=== PATIENT | male | born 1955 | race Caucasian/White ===

== ENCOUNTER 2016-12-27 11:01 | Outpatient (CLI) | payer BC ==
[2016-12-27 12:10] LABS: Hematocrit 37.2 % (42.0-52.0); Red Blood Cell (RBC) Count 4.09 mill/uL (4.70-6.10); White Blood Cell (WBC) Count 10.8 thou/uL (4.8-10.8)
[2016-12-27 12:28] LABS: Anion Gap 15 mmol/L (10-20); BUN (Urea Nitrogen) 25 mg/dL (8.4-25.7); Calc. Creatinine Clearance 0 mL/min (70-130); Calcium 9.9 mg/dL (7.8-10.44); Carbon Dioxide 26 mmol/L (23-31); Chloride 105 mmol/L (98-107); Estimated GFR-MDRD 42
--- NOTE | 2016-12-31 13:21 | EKG ---
Test Reason : Blood Pressure : / mmHG Vent. Rate : 089 BPM Atrial Rate : 089 BPM P-R Int : 154 ms QRS Dur : 106 ms QT Int : 390 ms P-R-T Axes : 061 -58 040 degrees QTc Int : 474 ms Normal sinus rhythm RSR' or QR pattern in V1 suggests right ventricular conduction delay Inferior infarct , age undetermined T wave abnormality, consider anterior ischemia Possible Anterior infarct , age undetermined Abnormal ECG Confirmed by MORENA LAWSON ([id number]) on 12/31/2016 1:21:19 PM Referred By: FRANKY Confirmed By:MORENA LAWSON
== END 2016-12-27 11:02 | disposition home or self-care (01) ==
LOC: LABBT 11:01
PROVIDERS: ATTEND Neurological Surgery
DX: Z01.818 Encounter for other preprocedural examination (principal); M54.12 Radiculopathy, cervical region
CPT/HCPCS: 80048; 85027; 93005; 93010

== ENCOUNTER 2016-12-31 06:29 | Day surgery (SDC) | payer BC ==
[2016-12-27 11:17] VITALS: BMI 34.7
[2016-12-31] MEDS ORDERED: CEFAZOLIN/Water 2 GM/20 ML SYRINGE ONE (06:45)
[2016-12-31] MEDS ORDERED: Sodium Chloride 0.9% 10 ML ONE (06:49)
[2016-12-31] MEDS ORDERED: Midazolam HCl 2 mg/2 ml Vial ONE (07:29)
[2016-12-31] MEDS ORDERED: Fentanyl 250 MCG/5 ML VIAL ONE (07:46)
[2016-12-31] MEDS ORDERED: Ondansetron HCl/PF 4 MG/2 ML Vial ONE (08:16)
[2016-12-31] MEDS ORDERED: PHENYLEPHRINE-NS 100 MCG/ML 10 ML SYRINGE ONE (08:16)
[2016-12-31] MEDS ORDERED: Glycopyrrolate 0.2 MG/ML 5 ML SYRINGE ONE (08:16)
[2016-12-31] MEDS ORDERED: Propofol 200 MG/20 ML VIAL ONE (08:16)
[2016-12-31] MEDS ORDERED: Lidocaine 1% PF 5 ML VIAL ONE (08:16)
--- NOTE | 2016-12-31 09:48 | OP ---
DATE OF PROCEDURE: 12/31/2016 SURGEON: Binh Garcia LUMBER PLANER: Gal Brush PA-C PROCEDURES: Anterior cervical discectomy at C5-6 and C6-7, interbody arthrodesis, intravertebral bi omechanical device, local morselized autograft, demineralized bone matrix, anterior titanium instrum entation C5 through C7. PROCEDURE IN DETAIL: The patient was brought into the operating room and intubated. He was positio danisha supine with the head in modest extension on a gel-filled donut. Incision was made in the right precervical area and dissecting medial to the sternocleidomastoid muscle. We identified the anterio r cervical spine and our level was confirmed by x-ray. We debrided anterior osteophytes, placed dis traction across the disc spaces, and using the operating microscope and microdissection techniques, completely decompressed the neural elements from foramen to foramen. Next, the bony endplates were decorticated for the purpose of arthrodesis and appropriately sized intravertebral biomechanical PEE K devices were brought into the field, filled with demineralized bone matrix and local morselized au tograft, and tapped into place securely at C5-6 and at C6-7. Next, an anterior plate was brought in the field and secured to C5, C6 and C7 using two 14 mm screws at each level. The wound was then ex tensively irrigated, immaculate hemostasis was secured, and the wound was closed in anatomic layers.
[2016-12-31] MEDS ORDERED: Fentanyl 100 MCG/2 ML VIAL ONE ×2 (09:54→10:18)
[2016-12-31] MEDS ORDERED: Ketorolac Tromethamine 30 MG/ML VIAL ONE (10:27)
[2016-12-31] MEDS ORDERED: HYDROcodone/Acetaminophen 10/325 mg Tablet ONE (13:26)
== END 2016-12-31 14:00 | disposition home or self-care (01) ==
LOC: SDC 06:29
PROVIDERS: ATTEND Neurological Surgery
PROC: 0RT30ZZ Resection of Cervical Vertebral Disc, Open Approach (ICD-10-PCS; principal; 2016-12-31)
PROC: 0RG2070 Fusion of 2 or more Cervical Vertebral Joints with Autologous Tissue Substitute, Anterior Approach, Anterior Column, Open Approach (ICD-10-PCS; principal; 2016-12-31)
PROC: 0RG20A0 Fusion of 2 or more Cervical Vertebral Joints with Interbody Fusion Device, Anterior Approach, Anterior Column, Open Approach (ICD-10-PCS; principal; 2016-12-31)
DX: M50.123 Cervical disc disorder at C6-C7 level with radiculopathy (principal); M25.78 Osteophyte, vertebrae; E78.5 Hyperlipidemia, unspecified; E11.40 Type 2 diabetes mellitus with diabetic neuropathy, unspecified; E11.22 Type 2 diabetes mellitus with diabetic chronic kidney disease; I12.9 Hypertensive chronic kidney disease with stage 1 through stage 4 chronic kidney disease, or unspecified chronic kidney disease; N18.2 Chronic kidney disease, stage 2 (mild); F32.9 Major depressive disorder, single episode, unspecified; F41.9 Anxiety disorder, unspecified; Z79.84 Long term (current) use of oral hypoglycemic drugs; Z79.82 Long term (current) use of aspirin; Z79.899 Other long term (current) drug therapy; Z88.1 Allergy status to other antibiotic agents; Z98.890 Other specified postprocedural states; Z87.891 Personal history of nicotine dependence
CPT/HCPCS: 76001; 96374; A4216; C1713; J1885; J2001; J2250; J2270; J2405; J2704; J3010; J3490

== ENCOUNTER 2018-04-24 08:24 | Outpatient (CLI) | payer BC ==
[~2018-04-24 08:24] MED LIST: ISOVUE-370 76%-LOCM 1 ML ONE
--- NOTE | 2018-04-24 11:18 | CT ---
CT LEFT WRIST WITH CONTRAST: HISTORY: Squamous cell carcinoma. Evaluate for deep extension. FINDINGS: At the area of interest along the lateral margin of the distal forearm, there is minimal overlying sk in thickening likely postsurgical in nature. NO underlying mass. No adjacent adenopathy. No eviden ce of deep extension of malignancy. BONES: No fracture. No malalignment. Moderate degenerative disease of the ulnar trochlear joint. MUSCLES: Muscle bulk is normal. NEUOROVASCULAR BUNDLES: Intact. IMPRESSION: No evidence for deep extension or metastatic disease of squamous cell carcinoma. POS: TPC
== END 2018-04-24 08:25 | disposition home or self-care (01) ==
LOC: BICCT 08:24
PROVIDERS: ATTEND Family Medicine
DX: C44.92 Squamous cell carcinoma of skin, unspecified (principal)
CPT/HCPCS: Q9966

== ENCOUNTER 2018-10-05 15:09 | Inpatient (IN) | payer BC ==
[2018-10-05 15:32] LABS: #Basophils 0.1 thou/uL (0.0-0.2); #Eosinphils 0.3 thou/uL (0.0-0.7); #Lymphocytes 3.7 thou/uL (1.20-3.40); #Monocytes 1.3 thou/uL (0.11-0.59); #Neutrophils 6.9 thou/uL (1.40-6.50); %Basophils 0.6 % (0.0-1.0); %Eosinophils 2.2 % (0.0-10.0); %Lymphocytes 30.3 % (21.0-51.0); %Monocytes 10.3 % (0.0-10.0); %Neutrophils 56.5 % (42.0-75.0); Hemoglobin 13.6 g/dL (14.0-18.0); Mean Corpuscular HGB CONC 33.1 g/dL (32.0-36.0); Mean Corpuscular Hemoglobin 29.8 pg (27.0-31.0); Mean Corpuscular Volume 90.1 fL (78.0-98.0); Mean Platelet Volume 7.4 fL (7.4-10.4); Platelet Count 375 thou/uL (130-400); RBC Distribution Width 13.6 % (11.5-14.5); Red Blood Cell (RBC) Count 4.57 mill/uL (4.70-6.10); White Blood Cell (WBC) Count 12.2 thou/uL (4.8-10.8)
--- NOTE | 2018-10-05 15:51 | RAD ---
Chest AP view INDICATION: Weakness and low blood pressure COMPARISON: September 30, 2014 FINDINGS: Lungs:There is increased airspace opacity within the retrocardiac left lower lobe as well as portions of the right lower lobe may reflect sequela of atelectasis and pneumonia isn't excluded. Cardiac silhouette pulmonary vasculature:The cardiomediastinal silhouette appears within normal limit s. Pleural spaces:No pleural effusion or pneumothorax is demonstrated. Upper abdomen:No abnormality seen. Osseous structures: No acute osseous abnormality. Additional findings:An ACDF is seen involving the cervical spine. IMPRESSION: Bibasilar airspace opacities are new from the prior exam. Bilateral pneumonia are not exc luded. Recommend two-view chest radiograph for further evaluation
[2018-10-05 15:55] LABS: ALT (SGPT) 29 U/L (8-55); AST (SGOT) 29 U/L (5-34); Albumin 4.9 g/dL (3.4-4.8); Alkaline Phosphatase 128 U/L (40-150); Anion Gap 17 mmol/L (10-20); BUN (Urea Nitrogen) 36 mg/dL (8.4-25.7); Bilirubin, Total 0.5 mg/dL (0.2-1.2); CK (CPK) 320 U/L (30-200); Calc. Creatinine Clearance 0 mL/min (70-130); Calcium 10.4 mg/dL (7.8-10.44); Carbon Dioxide 24 mmol/L (23-31); Chloride 99 mmol/L (98-107); Estimated GFR-MDRD 26; Globulin 3.1 g/dL (2.4-3.5); Glucose 120 mg/dL (80-115); Potassium 3.4 mmol/L (3.5-5.1); Sodium 137 mmol/L (136-145)
[2018-10-05] MEDS ORDERED: Mag-Al 1200 mg/1200 mg/30 ML UDCUP ONE (16:06)
[2018-10-05] MEDS ORDERED: Lidocaine Viscous Sol 2% 15 ml UD Cup ONE (16:06)
[2018-10-05] MEDS ORDERED: Acetaminophen 650 MG Suppository PR PRN (17:32)
[2018-10-05] MEDS ORDERED: Acetaminophen 325 MG TAB PO PRN (17:32)
[2018-10-05] MEDS ORDERED: HumaLOG 300 UNITS/3 ML VIAL SC PRN (17:35)
[2018-10-05] MEDS ORDERED: Dextrose 50% Abboject 50 ML SYRINGE SLOW IVP PRN (17:35)
[2018-10-05] MEDS ORDERED: Dextrose 5% in Water 1,000 ML IV PRN (17:35)
[2018-10-05] MEDS ORDERED: Potassium Chloride 20 MEQ TAB PO SCH (18:00)
--- NOTE | 2018-10-05 18:27 | HP ---
PRIMARY CARE PROVIDER: Murtaza Acuña DO CHIEF COMPLAINT: Low blood sugars. HISTORY OF PRESENT ILLNESS: Mr. Louis is a pleasant 63-year-old gentleman, who was seen at [facility] on October 05, 2018. He reports that he was hospitalized at this facility in 2013 and 2015 for heat exertion. He reports that he had elevated blood sugars over the last 3 weeks. He was started on glimepiride. He reports vomiting one week ago. He denies any recent travel. He reports working outdoors yesterday and today, on hot days. He reports feeling weak and dizzy. He checked his blood sugar and found that his blood sugar was low. His blood pressure was also low. He therefore presented to the emergency room. He also has an ulcer over the dorsum of his left foot for which he was treated with amoxicillin for 1 week, completing the course three days ago. REVIEW OF SYSTEMS: All other systems were reviewed and found to be negative. PAST MEDICAL HISTORY: Diabetes mellitus type 2, dyslipidemia, and hypertension. PAST SURGICAL HISTORY: Neck surgery. SOCIAL HISTORY: The patient denies tobacco use, alcohol use, or recreational drug use. ALLERGIES: AMLODIPINE AND AZITHROMYCIN. FAMILY HISTORY: No family history of coronary artery disease. CURRENT MEDICATIONS: 1. Aspirin 81 mg daily. 2. Atorvastatin 40 mg daily. 3. Amitriptyline 25 mg daily. 4. Lyrica 100 mg 2 times a day. 5. Lisinopril 10 mg daily. 6. Glimepiride 2 mg daily. 7. Trulicity 0.5 mL subcutaneously every week. PHYSICAL EXAMINATION: GENERAL: On examination, Mr. Louis is awake and alert, not in acute distress. VITAL SIGNS: Blood pressure is 91/58, pulse 74, respiratory rate 18, and oxygen saturation 100% on room air. He is afebrile. EYES: No scleral icterus. No conjunctival pallor. ENT: Dry mucosal membranes. No oropharyngeal erythema or exudates. NECK: Supple, nontender. Trachea is midline. RESPIRATORY: Accessory muscles of breathing are not active. Chest wall movements are symmetric bilaterally. Lungs are clear to auscultation without wheeze, rhonchi, or crepitations. CARDIOVASCULAR: S1 and S2 are heard, regular. Peripheral pulses palpable. No carotid bruit. No pericardial rub. ABDOMEN: Soft, nontender, bowel sounds heard. NEUROLOGIC: Cranial nerves 2 through 12 intact, deep tendon reflexes 2+. MUSCULOSKELETAL: Power is 5/5 in all 4 extremities. SKIN: The patient has an ulcer over the dorsum of the left foot, which appears to be healing. He also has a small wound over the plantar aspect of his right foot. LYMPHATIC: No cervical lymphadenopathy. PSYCHIATRIC: Normal mood, normal affect. The patient is oriented to person, place, and time. LABORATORY DATA: Mr. Louis' labs and investigations were reviewed. I reviewed his electrocardiogram, which shows normal sinus rhythm, no ST changes to suggest an acute coronary syndrome. I also reviewed his chest x-ray, which shows bibasilar airspace opacities. He has leukocytosis with 12,200 white cells, of which 6900 on neutrophils, normocytic anemia with hemoglobin 13.6, normal platelet count, normal sodium, decreased potassium of 3.4, elevated blood urea nitrogen of 36, elevated creatinine of 2.52, creatinine was 1.15 on September 24, 2018, elevated CK of 320, unremarkable LFTs, and normal troponin I. ASSESSMENT AND PLAN: Mr. Louis is a pleasant 63-year-old gentleman, who was seen at [facility] on October 05, 2018. His problem list includes: 1. Acute kidney injury: Mr. Louis is presenting with acute kidney injury, most likely secondary to a combination of rhabdomyolysis and dehydration. He will be admitted to the hospital for further management. He will receive intravenous hydration. We will hold nephrotoxic medications. We will recheck his creatinine. 2. Hypotension: Most likely secondary to heat exposure. The patient has improved clinically since coming to the emergency room. We will continue intravenous hydration, continue to monitor vital signs and titrate antihypertensives as needed. 3. Pneumonia: Bilateral, suspected based on the chest x-ray. The patient also has leukocytosis. We will start the patient on empiric antibiotics at this time and check two-view chest x-ray. 4. Hypoglycemia: Most likely secondary to diabetes medications being taken in the context of acute kidney injury. We will start the patient on Accu-Cheks and insulin sliding scale. 5. Dyslipidemia: Continue atorvastatin. 6. Foot wounds: Consult wound care. 7. The patient will have an echocardiogram to rule out pericardial effusion. He had a bedside echo done by emergency room physician, which showed a small pericardial effusion. 8. Rhabdomyolysis: CK is mildly elevated at 320. We will provide intravenous hydration and recheck CK level. 9. Hypokalemia: Replace potassium and recheck. Many thanks for allowing me to participate in your patient's care. Please feel free to contact me with any questions or concerns. LEVEL OF RISK: High. LEVEL OF COMPLEXITY: High. Job ID: [id number]
[2018-10-05] MEDS: Sodium Chloride 0.9% 1,000 ML IV SCH (18:41)
--- NOTE | 2018-10-05 18:42 | RAD ---
PA AND LATERAL CHEST: INDICATIONS: History of pneumonia. COMPARISON: Prior exam dated 10/05/2018. FINDINGS: Since the comparison examination, there is improve aeration of both lower lobes. The air space opaci ty seen on the prior examination was likely related to subsegmental volume loss and hypoventilation. No confluent air space opacities or pleural effusion is noted. IMPRESSION: 1. No acute cardiopulmonary abnormality. 2. Previously seen bibasilar opacities were related to subsegmental atelectasis from hypoventilation . POS: BH
[2018-10-05] MEDS: Heparin 5,000 UNITS/ML VIAL SC SCH (21:09)
[2018-10-05] MEDS ORDERED: Calcium Carbonate 500 MG ChewTAB PO PRN (22:27)
[2018-10-06] MEDS: Sodium Chloride 0.9% 1,000 ML IV SCH ×5 (02:07→18:59)
[2018-10-06 05:05] LABS: #Eosinphils 0.2 thou/uL (0.0-0.7); #Lymphocytes 3.6 thou/uL (1.20-3.40); #Monocytes 1.1 thou/uL (0.11-0.59); #Neutrophils 4.7 thou/uL (1.40-6.50); %Basophils 0.4 % (0.0-1.0); %Eosinophils 2.1 % (0.0-10.0); %Lymphocytes 37.8 % (21.0-51.0); %Neutrophils 48.7 % (42.0-75.0); Hemoglobin 11.1 g/dL (14.0-18.0); Mean Corpuscular HGB CONC 33.6 g/dL (32.0-36.0); Mean Corpuscular Hemoglobin 30.9 pg (27.0-31.0); Mean Platelet Volume 7.6 fL (7.4-10.4); Platelet Count 285 thou/uL (130-400); RBC Distribution Width 13.4 % (11.5-14.5); Red Blood Cell (RBC) Count 3.61 mill/uL (4.70-6.10); White Blood Cell (WBC) Count 9.6 thou/uL (4.8-10.8)
[2018-10-06 05:28] LABS: Anion Gap 13 mmol/L (10-20); BUN (Urea Nitrogen) 34 mg/dL (8.4-25.7); CK (CPK) 194 U/L (30-200); Calc. Creatinine Clearance 68 mL/min (70-130); Calcium 8.7 mg/dL (7.8-10.44); Carbon Dioxide 20 mmol/L (23-31); Chloride 109 mmol/L (98-107); Estimated GFR-MDRD 37; Glucose 84 mg/dL (80-115); Potassium 4.1 mmol/L (3.5-5.1); Sodium 138 mmol/L (136-145)
[2018-10-06] MEDS: Heparin 5,000 UNITS/ML VIAL SC SCH ×3 (09:21→21:07)
[2018-10-06 15:10] VITALS: BMI 34.0
--- NOTE | 2018-10-06 15:18 | PDOC.HOSPP ---
- Subjective Subjective: Pt seen for followup re: ROLAND. Feels better. - Objective Vital Signs & Weight: Vital Signs (12 hours) Temp Pulse Resp BP BP Pulse Ox 10/06/18 11:43 98 F 75 14 106/62 98 10/06/18 08:00 97.8 F 77 18 120/75 97 10/06/18 04:00 97.3 F L 77 20 93/54 L 95 Weight Admit Weight 259 lb Weight 257 lb 8 oz I&O: 10/05/18 10/06/18 10/07/18 06:59 06:59 06:59 Intake Total 2000 Output Total 875 Balance 1125 Result Diagrams: 10/06/18 04:25 10/06/18 04:25 Additional Labs: Accuchecks 10/06/18 10/05/18 10/05/18 05:27 21:06 15:23 POC Glucose 95 116 H 110 Labs and MARs reviewed by me EKG Reviewed by me: Yes (Tele: NSR) ROS - Review of Systems All systems: All other ROS were reviewed and found negative. Respiratory: denies: cough, shortness of breath, SOB with excertion, pleuritic pain, wheezing, other Cardiovascular: denies: chest pain, palpitations, orthopnea, paroxysmal noc. dyspnea, edema, light headedness - Medication Medications: Active Medications Generic Name Dose Route Start Last Admin Trade Name Freq PRN Reason Stop Dose Admin Calcium Carbonate 1,000 mg 10/05/18 22:27 10/05/18 22:37 Tums PO 1,000 mg DAILYPRN PRN Administration Heartburn or Indigestion Heparin Sodium (Porcine) 5,000 units 10/05/18 21:00 10/06/18 09:21 Heparin SC 5,000 units TID BETINA Administration Sodium Chloride 1,000 mls @ 150 mls/hr 10/05/18 17:45 10/06/18 13:50 Normal Saline 0.9% IV Not Given .Q6H40M BETINA Sodium Chloride 10 ml 10/06/18 09:00 10/06/18 09:23 Flush - Normal Saline IVF Not Given Q12HR BETINA - Exam NAD Eye: anicteric sclera ENT: normocephalic atraumatic Neck: supple Heart: RRR Respiratory: CTAB Gastrointestinal: soft Extremities: no cyanosis Skin: normal turgor Psychiatric: normal affect Hosp A/P (1) ROLAND (acute kidney injury) Code(s): N17.9 - ACUTE KIDNEY FAILURE, UNSPECIFIED Status: Acute (2) Pneumonia Code(s): J18.9 - PNEUMONIA, UNSPECIFIED ORGANISM Status: Ruled-out (3) Rhabdomyolysis Code(s): M62.82 - RHABDOMYOLYSIS Status: Resolved (4) Hypotension Status: Resolved (5) Hypoglycemia Code(s): E16.2 - HYPOGLYCEMIA, UNSPECIFIED Status: Resolved - Plan Creatinine 1.86, continue IV fluids and recheck creatinine. Lisinopril, metformin and glimepiride on hold. No evidence of pneumonia on chest x-ray.
[2018-10-06] MEDS ORDERED: Atorvastatin Calcium 40 MG TAB PO SCH (21:00)
[2018-10-06] MEDS ORDERED: Amitriptyline HCl 25 MG TAB PO SCH (21:00)
[2018-10-06] MEDS ORDERED: Aspirin 81 mg Enteric Coated Tablet PO SCH (21:00)
[2018-10-06] MEDS: ALPRAZolam 0.25 MG TAB PO PRN (21:07)
--- NOTE | 2018-10-07 | CON ---
DATE OF CONSULTATION: REASON FOR CONSULTATION: Elevated creatinine. HISTORY OF PRESENT ILLNESS: This is a very pleasant 63-year-old gentleman, presented to the hospital with dehydration. The patient's creatinine was more than 2 and has now improved with hydration to 1.6. The patient was also hypoglycemic. PAST MEDICAL HISTORY: Diabetes mellitus, hypertension, history of neck surgery. SOCIAL HISTORY: No alcohol or drug use. FAMILY HISTORY: Negative for ESRD. ALLERGIES: REVIEWED. MEDICATIONS: Home medication list reviewed. Hospital medication list reviewed. REVIEW OF SYSTEMS: A 15-point review of system was performed and negative except for positives noted above. GENERAL: HEAD: NECK: No swelling or lumps. NOSE: No epistaxis or discharge. EYES: No diplopia or pain. RESPIRATORY: CARDIOVASCULAR: GASTROINTESTINAL: /ORACLE ERP ARCHITECT: MUSCULOSKELETAL: No joint pain. NEUROPSYCHIATRIC SYSTEMS: No suicidal ideation. No ideation. SKIN: Denies any rash or ulcer. CONSTITUTIONAL: No fever or chills. PHYSICAL EXAMINATION: The patient is awake, alert. VITAL SIGNS: Pulse 75, breathing 16, blood pressure . GENERAL APPEARANCE AND MENTAL STATUS: Fair. HEAD/NECK: Normocephalic. Atraumatic. EYES: EOMI. No deformity. EARS: Clear. No ulcers. NOSE: Intact. No lesions. MOUTH: Clear. No discharge. THROAT: Clear. No exudate. LUNGS: Clear. No crackles. CARDIAC: S1, S2. No rub. ABDOMEN: Benign. Bowel sounds positive. GENITALIA/RECTUM: Marrufo absent. BACK/EXTREMITIES: Edema 0+. NEUROLOGICAL: Alert and motor intact. SKIN: LYMPHATICS: LABORATORY DATA: Reviewed. IMPRESSION AND PLAN: Acute kidney injury with chronic kidney disease, improved. Dehydration, improving. Hold BENNIE inhibitor. Anemia, stable. Medication based on GFR appropriate. Hypokalemia, stable. No indication for dialysis. Job ID: [id number]
[2018-10-07] MEDS: Sodium Chloride 0.9% 1,000 ML IV SCH (02:16)
[2018-10-07 05:46] LABS: #Eosinphils 0.2 thou/uL (0.0-0.7); #Lymphocytes 2.3 thou/uL (1.20-3.40); #Monocytes 0.7 thou/uL (0.11-0.59); #Neutrophils 4.7 thou/uL (1.40-6.50); %Basophils 0.4 % (0.0-1.0); %Eosinophils 2.4 % (0.0-10.0); %Lymphocytes 29.3 % (21.0-51.0); %Monocytes 8.7 % (0.0-10.0); %Neutrophils 59.2 % (42.0-75.0); Hemoglobin 10.7 g/dL (14.0-18.0); Mean Corpuscular Hemoglobin 30.1 pg (27.0-31.0); Mean Platelet Volume 7.1 fL (7.4-10.4); Platelet Count 238 thou/uL (130-400); RBC Distribution Width 13.6 % (11.5-14.5); Red Blood Cell (RBC) Count 3.57 mill/uL (4.70-6.10); White Blood Cell (WBC) Count 7.9 thou/uL (4.8-10.8)
[2018-10-07 06:06] LABS: Anion Gap 9 mmol/L (10-20); BUN (Urea Nitrogen) 18 mg/dL (8.4-25.7); Calc. Creatinine Clearance 97 mL/min (70-130); Calcium 8.3 mg/dL (7.8-10.44); Carbon Dioxide 24 mmol/L (23-31); Chloride 112 mmol/L (98-107); Estimated GFR-MDRD 56; Glucose 131 mg/dL (80-115); Potassium 4.5 mmol/L (3.5-5.1); Sodium 140 mmol/L (136-145)
[2018-10-07 07:47] VITALS: BP 128/78; TEMP 97.9
[2018-10-07] MEDS ORDERED: Venlafaxine HCl 25 MG TAB PO SCH (09:00)
[2018-10-07] MEDS ORDERED: Multivit, Therapeutic 1 TAB PO SCH (09:00)
[2018-10-07] MEDS: ALPRAZolam 0.25 MG TAB PO PRN (09:34)
[2018-10-07] MEDS: Heparin 5,000 UNITS/ML VIAL SC SCH (09:39)
--- NOTE | 2018-10-07 10:42 | DIS ---
DATE OF ADMISSION: 10/05/2018 DATE OF DISCHARGE: 10/07/2018 PRIMARY CARE PROVIDER: Murtaza Acuña DO. DISCHARGE DIAGNOSES: 1. Acute kidney injury. 2. Rhabdomyolysis. 3. Hypoglycemia. 4. Hypotension. 5. Dehydration. CONDITION OF PATIENT ON THE DAY OF DISCHARGE: Stable. I assessed Mr. Louis on the day of discharge. He denies any chest pain or shortness of breath. Vital signs are stable. S1 and S2 are heard, regular. Lungs are clear to auscultation bilaterally. DISCHARGE MEDICATIONS: Glimepiride is on hold. Lisinopril is on hold. Otherwise, no change was made to his pre-admission home medications as dictated in my history and physical note dated October 05, 2018. HOSPITAL COURSE: Mr. Louis is a pleasant 63-year-old gentleman, who was admitted to [facility] on October 05, 2018, for acute kidney injury and dehydration. Please refer to my history and physical note dated October 05, 2018, for further details. He was seen by Nephrology Service. He improved with intravenous fluids. 2D echocardiogram showed left ventricular ejection fraction of 50% to 55%, moderately dilated left atrium, mild mitral regurgitation, and mild tricuspid regurgitation. He was seen by Nephrology Service and by Wound Care team. He has a small wound over the plantar aspect of his right foot and a wound over the dorsum of the left foot, which was recently treated with antibiotics. On the day of discharge, Mr. Louis has sodium 140, potassium 4.5, creatinine 1.29, calcium 8.3, white count 7900, hemoglobin 10.7, and platelet count 238,000. At the time of presentation, Mr. Louis had leukocytosis. There was also suspicion of bibasilar pneumonia on the chest x-ray. He was treated with antibiotics. However, followup chest x-ray with PA and lateral view was suggestive of atelectasis. Antibiotics were discontinued. He remained afebrile during this hospitalization. His lisinopril was on hold during this hospitalization. He maintained good blood pressures. He is advised to check his blood pressure and heart rate 3 times a day and show the readings to his primary care provider. His glimepiride has also been discontinued. He has been advised to continue the rest of his antidiabetes medications and check his blood sugars 3 times a day and show the readings to his primary care provider. DISCHARGE DESTINATION: Home. TIME SPENT: Total amount of time spent coordinating this discharge: 31 minutes. Job ID: [id number]
--- NOTE | 2018-10-07 11:52 | PRG ---
DATE OF SERVICE: 10/07/2018 SUBJECTIVE: A 63-year-old gentleman is being seen for acute kidney injury. The patient denies nausea, vomiting, or chest pain. OBJECTIVE: GENERAL: The patient is awake and alert. VITAL SIGNS: Afebrile, pulse 78, breathing 16, blood pressure 120/78. GENERAL APPEARANCE AND MENTAL STATUS: Fair. HEAD/NECK: Normocephalic and atraumatic. EYES: EOMI. No deformity. EARS: Clear. No ulcers. NOSE: Intact. No lesions. MOUTH: Clear. No discharge. THROAT: Clear. No exudate. LUNGS: Clear. No crackles. CARDIAC: S1, S2. No rub. ABDOMEN: Benign. Bowel sounds positive. GENITALIA/RECTUM: Marrufo absent. BACK/EXTREMITIES: Edema 0+. NEUROLOGICAL: Alert and motor intact. LABORATORY DATA: Reviewed. ASSESSMENT: 1. Stage 3 chronic kidney disease, stable. 2. Hypertension, stable. 3. Acute kidney injury, resolved due to acute tubular necrosis. 4. Anemia, stable. 5. Medication based on GFR appropriate. Job ID: [id number]
--- NOTE | 2018-10-07 16:01 | CON ---
DATE OF CONSULTATION: SUBJECTIVE FINDINGS: I was asked to see the patient today for wound on the dorsal left foot. In discussing this with the patient, he has been using his tractor in flip-flops and has rubbed the wound on the top of his left foot. This has been there for about a week. They have been treating with hydrogen peroxide and antibiotic ointment. He is diabetic and has neuropathy and stating he does not feel his feet. When visiting with him, he also said he has something wrong with the right foot and this was examined. The patient has been seen in our office in 2013. OBJECTIVE FINDINGS: Examination of the patient shows diabetic neuropathy present. The patient has good palpable pulses bilaterally, 2/4 dorsalis pedis and posterior tib. Capillary filling time is less than 3 seconds bilaterally. Examination of the left foot shows a dorsal superficial ulcer measuring 12 mm x 15 mm. There is minimal erythema surrounding the wound. No signs of secondary bacterial infection. On the right foot, sub-second metatarsal head, there is a callus that has broken down showing a superficial ulceration of 14 x 10 mm. No signs of secondary bacterial infection. No tracking for either wound. ASSESSMENT AND PLAN: 1. Superficial ulcer, both left and right feet. 2. The patient was instructed on care. Both wounds were cleaned and debrided of fibrotic tissue. Application of bacitracin and sterile bandaging applied. The patient and his were instructed on home care, and they will see me next week in the office for re-examination and further care. Job ID: [id number]
--- NOTE | 2018-10-08 15:30 | EKG ---
Test Reason : Blood Pressure : / mmHG Vent. Rate : 087 BPM Atrial Rate : 087 BPM P-R Int : 172 ms QRS Dur : 126 ms QT Int : 408 ms P-R-T Axes : 079 -59 051 degrees QTc Int : 490 ms Sinus rhythm with occasional Premature ventricular complexes Left axis deviation Non-specific intra-ventricular conduction block Biatrial enlargement Abnormal ECG Confirmed by GRICELDA PALENCIA, DENA Estrella ([id number]), publishing editor SUNNY PACHECO ([id number]) on 10/08/2018 3:30:01 PM Referred By: Confirmed By:DENA MADISON MD
== END 2018-10-07 12:20 | disposition home or self-care (01) | DRG 683 ==
LOC: ERS 15:09 → 2NO 17:58
PROVIDERS: ADMIT Internal Medicine; ATTEND Internal Medicine
DX: N17.0 Acute kidney failure with tubular necrosis (principal); M62.82 Rhabdomyolysis; J98.11 Atelectasis; I31.3 Pericardial effusion (noninflammatory); E78.5 Hyperlipidemia, unspecified; E86.0 Dehydration; I95.89 Other hypotension; E87.6 Hypokalemia; I12.9 Hypertensive chronic kidney disease with stage 1 through stage 4 chronic kidney disease, or unspecified chronic kidney disease; E11.649 Type 2 diabetes mellitus with hypoglycemia without coma; E11.22 Type 2 diabetes mellitus with diabetic chronic kidney disease; N18.3 Chronic kidney disease, stage 3 (moderate); D63.1 Anemia in chronic kidney disease; F32.9 Major depressive disorder, single episode, unspecified; E11.621 Type 2 diabetes mellitus with foot ulcer; E11.40 Type 2 diabetes mellitus with diabetic neuropathy, unspecified; Z79.4 Long term (current) use of insulin; Z88.1 Allergy status to other antibiotic agents; Z88.8 Allergy status to other drugs, medicaments and biological substances; Z98.890 Other specified postprocedural states
CPT/HCPCS: 36415; 36416; 71045; 71046; 80048; 80053; 82550; 84484; 85025; 93005; 93306; 96360; 96361; J1644; J1956

== ENCOUNTER 2020-08-29 14:41 | Outpatient (CLI) | payer MEDICARE, BC | END 2020-08-29 14:42 | disposition home or self-care (01) | LOC: BICCT 14:41 | PROVIDERS: ATTEND Family Medicine | DX: Z12.2 Encounter for screening for malignant neoplasm of respiratory organs (principal); Z87.891 Personal history of nicotine dependence | CPT/HCPCS: 71271 ==

== ENCOUNTER 2020-11-15 07:01 | Day surgery (SDC) | payer MEDICARE, BC ==
[2020-11-11 14:56] VITALS: BMI 32.1
[2020-11-15] MEDS ORDERED: Acetaminophen 500 MG TAB ONE (08:32)
[2020-11-15] MEDS ORDERED: Bupivacaine 0.25% HCL 30 ML VIAL ONE (09:16)
[2020-11-15] MEDS ORDERED: Lidocaine 1% w/Epinephrine 1:100K 30 ML VIAL ONE (09:16)
[2020-11-15] MEDS ORDERED: Fentanyl 250 MCG/5 ML VIAL ONE (09:26)
[2020-11-15] MEDS ORDERED: SUGAMMADEX SODIUM 200 MG/2 ML VIAL ONE (09:27)
[2020-11-15] MEDS ORDERED: Lidocaine 2% Jelly 5 ML TUBE ONE (09:27)
[2020-11-15 09:37] LABS: ALT (SGPT) 17 U/L (8-55); AST (SGOT) 14 U/L (5-34); Albumin 3.8 g/dL (3.4-4.8); Alkaline Phosphatase 107 U/L (40-110); Bilirubin, Direct 0.1 mg/dL (0.1-0.3); Bilirubin, Total 0.3 mg/dL (0.2-1.2); Protein, Total 6.8 g/dL (5.8-8.1)
[2020-11-15] MEDS ORDERED: PROPOFOL 200 MG/20 ML VIAL ONE (09:47)
[2020-11-15] MEDS ORDERED: Ondansetron PF 4 MG/2 ML Vial ONE (09:47)
[2020-11-15] MEDS ORDERED: Ketorolac Tromethamine 30 MG/ML VIAL ONE (09:47)
[2020-11-15] MEDS ORDERED: Rocuronium Bromide 10 MG/ML (10ML VIAL) ONE (09:47)
[2020-11-15] MEDS ORDERED: Dexamethasone 20 MG/5 ML VIAL ONE (09:47)
[2020-11-15] MEDS ORDERED: Lidocaine 1% PF 5 ML VIAL ONE (09:47)
[2020-11-15] MEDS ORDERED: ePHEDrine 50 MG/ML VIAL ONE (09:47)
[2020-11-15] MEDS ORDERED: PHENYLEPHRINE-NS 100 MCG/ML 10 ML SYRINGE ONE (09:47)
[2020-11-15] MEDS ORDERED: Glycopyrrolate 0.2 MG/ML 5 ML SYRINGE ONE (09:47)
[2020-11-15] MEDS ORDERED: HYDROcodone/Acetaminophen 5/325 mg Tablet ONE (12:47)
== END 2020-11-15 13:00 | disposition home or self-care (01) ==
LOC: SDC 07:01
PROVIDERS: ATTEND Surgery
PROC: 0FT44ZZ Resection of Gallbladder, Percutaneous Endoscopic Approach (ICD-10-PCS; principal; 2020-11-15)
DX: K80.10 Calculus of gallbladder with chronic cholecystitis without obstruction (principal); E78.5 Hyperlipidemia, unspecified; I10 Essential (primary) hypertension; E11.40 Type 2 diabetes mellitus with diabetic neuropathy, unspecified; E66.9 Obesity, unspecified; Z68.32 Body mass index [BMI] 32.0-32.9, adult; Z87.891 Personal history of nicotine dependence; Z79.82 Long term (current) use of aspirin; Z79.84 Long term (current) use of oral hypoglycemic drugs; Z79.899 Other long term (current) drug therapy; Z88.1 Allergy status to other antibiotic agents; Z88.8 Allergy status to other drugs, medicaments and biological substances
CPT/HCPCS: 80076; 88304; 93005; 93010; J0690; J1100; J1885; J2405; J2704; J3010; J3490; S0020

== ENCOUNTER 2021-09-05 10:14 | Outpatient (CLI) | payer MEDICARE, BC | END 2021-09-05 10:15 | disposition home or self-care (01) | LOC: BICCT 10:14 | PROVIDERS: ATTEND Family Medicine | DX: Z12.2 Encounter for screening for malignant neoplasm of respiratory organs (principal); Z87.891 Personal history of nicotine dependence | CPT/HCPCS: 71271 ==

== ENCOUNTER 2024-04-30 01:56 | Inpatient (IN) | payer BC, MEDICARE ==
[2024-04-30] MEDS ORDERED: Aspirin Chewable 81 MG TAB ONE (02:15)
[2024-04-30 02:32] LABS: #Basophils 0.04 10x3/uL (0.0-0.2); %Basophils 0.4 % (0.0-1.0); %Eosinophils 2.6 % (0.0-10.0); %Lymphocytes 28.7 % (21.0-51.0); %Monocytes 9.6 % (0.0-10.0); %Neutrophils 58.5 % (42.0-75.0); Hematocrit 40.2 % (42.0-52.0); Hemoglobin 12.8 g/dL (14.0-18.0); Mean Corpuscular HGB CONC 31.8 g/dL (32.0-36.0); Mean Corpuscular Hemoglobin 28.2 pg (27.0-31.0); Mean Corpuscular Volume 88.5 fL (78.0-98.0); Mean Platelet Volume 10.4 fL (7.4-10.4); Platelet Count 255 10x3/uL (130-400); RBC Distribution Width 14.5 % (11.5-14.5); Red Blood Cell (RBC) Count 4.54 mill/uL (4.70-6.10)
[2024-04-30 02:46] LABS: ALT (SGPT) 9 U/L (Less than 45); AST (SGOT) 21 U/L (11-34); Alkaline Phosphatase 91 U/L (40-110); Anion Gap 15 mmol/L (10-20); BUN (Urea Nitrogen) 15 mg/dL (8.4-25.7); Bilirubin, Total 0.3 mg/dL (0.3-1.2); Calc. Creatinine Clearance 0 mL/min (70-130); Calcium 9.4 mg/dL (7.8-10.44); Carbon Dioxide 27 mmol/L (23-31); Chloride 104 mmol/L (98-107); Estimated GFR 54; Glucose 163 mg/dL (80-115); Potassium 4.1 mmol/L (3.5-5.1); Sodium 142 mmol/L (136-145)
[2024-04-30 02:50] LABS: Troponin I 0.117 ng/mL (< 0.028)
[2024-04-30] MEDS ORDERED: Enoxaparin 100 MG (1 mL) SYRINGE ONE (03:12)
[2024-04-30] MEDS ORDERED: Ondansetron PF 4 MG/2 ML Vial IVP PRN (03:17)
[2024-04-30] MEDS ORDERED: Calcium Carbonate 500 MG ChewTAB PO PRN (03:17)
[2024-04-30] MEDS ORDERED: Acetaminophen 650 MG Suppository PR PRN (03:17)
[2024-04-30] MEDS ORDERED: Acetaminophen 325 MG TAB PO PRN (03:17)
[2024-04-30] MEDS ORDERED: Ondansetron ODT 4 MG TAB PO PRN (03:17)
[2024-04-30 04:04] LABS: Cardiac Risk 3.3 (Less than 4.5)
[2024-04-30 04:09] LABS: Troponin I 0.153 ng/mL (< 0.028)
[2024-04-30 05:07] VITALS: BMI 32.1
[2024-04-30] MEDS ORDERED: ALPRAZolam 0.25 MG TAB PO PRN (05:22)
[2024-04-30 07:00] LABS: Hemoglobin A1c 6.6 % (4.0-6.0)
[2024-04-30 07:13] LABS: Troponin I 1.211 ng/mL (< 0.028)
[2024-04-30] MEDS ORDERED: Iopamidol 370 76% 100 ML VIAL ONE (09:36)
[2024-04-30] MEDS: Aspirin Chewable 81 MG TAB PO SCH (11:01)
[2024-04-30] MEDS: metFORMIN 500 MG TAB PO SCH (11:01)
[2024-04-30] MEDS: Famotidine 20 MG TAB PO SCH (11:01)
[2024-04-30] MEDS: Metoprolol Succinate XL 25 MG ER.TAB PO SCH (11:01)
[2024-04-30] MEDS: BuPROPion XL 150 MG ER.TAB PO SCH (11:01)
[2024-04-30] MEDS: lamoTRIgine 25 MG TAB PO SCH (11:01)
[2024-04-30] MEDS: Colestipol 1 GM TAB PO SCH (11:01)
[2024-04-30] MEDS: Amlodipine 10 MG TAB PO SCH (11:02)
[2024-04-30] MEDS: Famotidine/PF 20 mg/2ml Vial SLOW IVP SCH (11:02)
[2024-04-30] MEDS: Sodium Chloride 0.9% 1,000 ML IV SCH ×3 (11:04→23:00)
[2024-04-30] MEDS ORDERED: Adenosine 6 mg (2 mL) VIAL ONE (13:54)
[2024-04-30] MEDS ORDERED: EPINEPHrine 1 MG/10 ML Abboject SYRINGE ONE (13:54)
[2024-04-30] MEDS ORDERED: Atropine Sulfate 1 mg/10 ml Syringe ONE (13:54)
[2024-04-30] MEDS ORDERED: Midazolam HCl 2 mg/2 ml Vial ONE (13:55)
[2024-04-30] MEDS ORDERED: PHENYLEPHRINE-NS 100 MCG/ML 10 ML SYRINGE ONE (13:55)
[2024-04-30] MEDS ORDERED: Heparin 10,000 UNITS/ 10 ML VIAL ONE ×2 (13:55→15:36)
[2024-04-30] MEDS ORDERED: fentaNYL 50 mcg/mL 1 mL Vial ONE (13:55)
[2024-04-30] MEDS ORDERED: Verapamil 5 MG/2 ML VIAL ONE (13:55)
[2024-04-30] MEDS ORDERED: Nitroglycerin 50 MG/250 ML BOT 250 ML ONE (13:55)
[2024-04-30] MEDS ORDERED: Ondansetron PF 4 MG/2 ML Vial ONE (15:10)
[2024-04-30] MEDS ORDERED: TICAGRELOR 90 MG TABLET ONE (15:44)
[2024-04-30 16:27] VITALS: BMI 32.1
[2024-04-30] MEDS ORDERED: Amitriptyline HCl 25 MG TAB PO SCH (21:00)
[2024-04-30] MEDS: Venlafaxine HCl 25 MG TAB PO SCH (23:44)
[2024-04-30] MEDS: TICAGRELOR 90 MG TABLET PO SCH (23:46)
[2024-04-30] MEDS: Atorvastatin Calcium 40 MG TAB PO SCH (23:46)
[2024-05-01 05:12] LABS: #Basophils 0.03 10x3/uL (0.0-0.2); %Basophils 0.3 % (0.0-1.0); %Eosinophils 1.1 % (0.0-10.0); %Lymphocytes 21.8 % (21.0-51.0); %Monocytes 9.8 % (0.0-10.0); %Neutrophils 66.8 % (42.0-75.0); Hematocrit 38.7 % (42.0-52.0); Hemoglobin 12.4 g/dL (14.0-18.0); Mean Corpuscular Hemoglobin 28.4 pg (27.0-31.0); Mean Corpuscular Volume 88.6 fL (78.0-98.0); Mean Platelet Volume 9.7 fL (7.4-10.4); Platelet Count 236 10x3/uL (130-400); RBC Distribution Width 14.4 % (11.5-14.5); Red Blood Cell (RBC) Count 4.37 mill/uL (4.70-6.10)
[2024-05-01 05:45] LABS: Lactic Acid 1.03 mmol/L (0.50-2.20)
[2024-05-01 05:46] LABS: ALT (SGPT) 12 U/L (Less than 45); AST (SGOT) 40 U/L (11-34); Albumin 3.7 g/dL (3.1-4.5); Alkaline Phosphatase 83 U/L (40-110); Anion Gap 13 mmol/L (10-20); BUN (Urea Nitrogen) 13 mg/dL (8.4-25.7); Bilirubin, Total 0.6 mg/dL (0.3-1.2); Calc. Creatinine Clearance 86 mL/min (70-130); Calcium 9.2 mg/dL (7.8-10.44); Carbon Dioxide 24 mmol/L (23-31); Chloride 107 mmol/L (98-107); Estimated GFR 61; Globulin 2.8 g/dL (2.4-3.5); Glucose 115 mg/dL (80-115); Potassium 4.4 mmol/L (3.5-5.1); Protein, Total 6.5 g/dL (5.8-8.1); Sodium 140 mmol/L (136-145)
[2024-05-01] MEDS: Venlafaxine HCl 25 MG TAB PO SCH (10:03)
[2024-05-01] MEDS: Pantoprazole 40 MG DR.TAB PO SCH (10:04)
[2024-05-01 11:42] VITALS: TEMP 97.4
[2024-05-01 11:53] VITALS: BP 171/83
== END 2024-05-01 14:41 | disposition home or self-care (01) | DRG 322 ==
LOC: ERS 01:56 → OBS 03:35
PROVIDERS: ADMIT Student in an Organized Health Care Education/Training Program; ATTEND Internal Medicine
PROC: 4A023N7 Measurement of Cardiac Sampling and Pressure, Left Heart, Percutaneous Approach (ICD-10-PCS; principal; 2024-04-30)
PROC: 027034Z Dilation of Coronary Artery, One Artery with Drug-eluting Intraluminal Device, Percutaneous Approach (ICD-10-PCS; 2024-04-30)
PROC: B2111ZZ Fluoroscopy of Multiple Coronary Arteries using Low Osmolar Contrast (ICD-10-PCS; 2024-04-30)
PROC: B2151ZZ Fluoroscopy of Left Heart using Low Osmolar Contrast (ICD-10-PCS; 2024-04-30)
PROC: B240ZZ3 Ultrasonography of Single Coronary Artery, Intravascular (ICD-10-PCS; 2024-04-30)
DX: I21.4 Non-ST elevation (NSTEMI) myocardial infarction (principal); E78.5 Hyperlipidemia, unspecified; E11.22 Type 2 diabetes mellitus with diabetic chronic kidney disease; I12.9 Hypertensive chronic kidney disease with stage 1 through stage 4 chronic kidney disease, or unspecified chronic kidney disease; N18.9 Chronic kidney disease, unspecified; K21.9 Gastro-esophageal reflux disease without esophagitis; F17.210 Nicotine dependence, cigarettes, uncomplicated; Z90.49 Acquired absence of other specified parts of digestive tract; Z88.8 Allergy status to other drugs, medicaments and biological substances; Z88.1 Allergy status to other antibiotic agents; Z79.82 Long term (current) use of aspirin; Z79.02 Long term (current) use of antithrombotics/antiplatelets; Z79.899 Other long term (current) drug therapy
CPT/HCPCS: 36415; 36416; 71045; 80053; 80061; 83036; 83605; 84484; 85025; 85347; 92928; 92978; 93005; 93010; 93458; 93798; 94760; 96372; 99152; 99153; C1753; C1769; C1874; C1894; C9600; J0153; J0171; J0461; J1644; J1650; J2250; J2405; J3010; J7030